=== PATIENT | male | born 1950 | race Caucasian/White ===

== ENCOUNTER 2019-10-24 12:15 | Emergency (ER) | payer MEDICARE ==
[~2019-10-24] VITALS: Ht 180.3 cm; Wt 81.6 kg
[~2019-10-24 12:15] MED LIST: MULT-658 PO; OMEP20CA9 PO; ONDA-89 PO
--- NOTE | 2019-10-24 13:00 | NUR ---
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
--- NOTE | 2019-10-24 13:26 | NUR ---
PT AMBULATED TO RESTROOM WITH STEADY GAIT TO PROVIDE URINE SAMPLE. UA COLLECTED AND TAKEN BY [employer].
[2019-10-24 13:43] LABS: BASOPHILS # (AUTO) 0.03 x10^3/uL (0-0.1); BASOPHILS % (AUTO) 0 % (0-1); EOSINOPHILS # (AUTO) 0.04 x10^3/uL (0-0.4); EOSINOPHILS % (AUTO) 0 % (1-7); LYMPHOCYTES # (AUTO) 1.06 x10^3/uL (1-3.4); LYMPHOCYTES % (AUTO) 9 % (22-44); MD NO; MEAN CORPUSCULAR HEMOGLOBIN 31.8 pg (27.5-34.5); MEAN CORPUSCULAR HGB CONC 33.6 g/dL (33.2-36.2); MEAN PLATELET VOLUME 9.3 fL (7.4-10.4); MONOCYTES # (AUTO) 0.68 x10^3/uL (0.2-0.8); MONOCYTES % (AUTO) 6 % (2-9); NEUTROPHILS # (AUTO) 10.52 x10^3/uL (1.8-6.8); NEUTROPHILS % (AUTO) 85 % (42-75); PLATELET COUNT 147 x10^3/uL (130-400); RED BLOOD COUNT 5.11 x10^6/uL (4.38-5.82); RED CELL DISTRIBUTION WIDTH 13.3 % (9.4-14.8)
[2019-10-24 13:49] LABS: MICROSCOPIC AUTO
[2019-10-24] MEDS ORDERED: HYDR12.517 PO (13:52)
[2019-10-24] MEDS ORDERED: IRBE300T8 PO (13:52)
[2019-10-24] MEDS ORDERED: AMLO-150 PO (13:52)
[2019-10-24] MEDS ORDERED: METO25TA35 PO (13:52)
[2019-10-24 13:54] LABS: ALBUMIN 4.1 g/dL (3.4-5.0); ANION GAP 7 mmol/L (5-15); CHLORIDE 107 mmol/L (98-107)
[2019-10-24 13:57] LABS: ALANINE AMINOTRANSFERASE 19 U/L (12-78); ALKALINE PHOSPHATASE 55 U/L (45-117); BILIRUBIN,TOTAL 1.8 mg/dL (0.2-1.0); CREATININE 1.24 mg/dL (0.7-1.3)
[2019-10-24] MEDS ORDERED: ONDANSETRON 2MG/ML, 2ML ONE (14:21)
[2019-10-24] MEDS ORDERED: HYDROmorphone 1 MG/ML, 1ML INJ ONE (14:21)
--- NOTE | 2019-10-24 14:27 | NUR ---
[facility] ADMIN VIA IM. OK TO CHANGE PER MD IF PT DIDN'T WANT PIV PLACED. PT RESTING ON GURNEY. SAIDA. AT BEDSIDE.
[2019-10-24] MEDS ORDERED: SODIUM CHLORIDE FLUSH 10ML SYR IVF ONE (14:30)
[2019-10-24] MEDS ORDERED: HYDROmorphone 2 MG/ML, 1ML IVPush PRN (14:30)
[2019-10-24] MEDS ORDERED: ONDANSETRON 2MG/ML, 2ML IVPush ONE (14:30)
--- NOTE | 2019-10-24 14:30 | NUR ---
ALL RESULTS ARE BACK AT THIS TIME. CHART UP FOR RECHECK.
--- NOTE | 2019-10-24 14:54 | NUR ---
PT STATES PAIN IS BETTER.
--- NOTE | 2019-10-24 16:17 | NUR ---
PT AMBULATED TO THE BR W/ A STEADY GAIT, ACCOMPANIED BY FAMILY.
--- NOTE | 2019-10-24 16:24 | NUR ---
TASK RN. PT D/C'D PER ORDERS, VERBALIZED UNDERSTANDING OF D/C PAPERWORK. PT WITH STEADY GAIT UPON D/C.
[2019-10-24 16:25] VITALS: BP 126/78
== END 2019-10-24 16:44 | disposition home or self-care (01) ==
LOC: ED 16:10
DX: N13.2 Hydronephrosis with renal and ureteral calculous obstruction (principal); K21.9 Gastro-esophageal reflux disease without esophagitis
CPT/HCPCS: 36415; 74176; 80053; 81001; 83690; 85025; 87086; 96374; 96375; 99284; J1170; J2405